=== PATIENT | female | born 1965 | race Caucasian/White ===

== ENCOUNTER 2020-05-10 15:13 | Emergency (ER) | payer OTHER, SELFPAY ==
--- NOTE | ~2020-05-10 | XR_ITS ---
XR ankle LT min 3V DATE: 05/10/2020 16:11 INDICATION: Fall. Dorsal foot pain, ankle pain TECHNIQUE: 4 views COMPARISON: None FINDINGS: There is an up to approximately 2 x 8 mm cortical avulsion fracture of the dorsal aspect of the anterior process of the talus with overlying soft tissue swelling. No other fracture or dislocation of the ankle or disruption of the ankle mortise is detected. There i s mild lateral ankle soft tissue swelling. IMPRESSION: Cortical avulsion fracture of the dorsal aspect of the anterior process of the talus Reviewed, dictated and finalized at [facility] [employer] IMPRESSION: Cortical avulsion fracture of the dorsal aspect of the anterior pro cess of the talus
[2020-05-10 15:25] VITALS: BP 141/91; PULSE 76; RESP 16; TEMP 36.4; O2SAT 100
[2020-05-10 15:36] VITALS: BP 141/91; PULSE 76; RESP 16; TEMP 36.4; O2SAT 99
--- NOTE | 2020-05-10 17:04 | ED.GENADULT ---
HPI - General Adult General Chief complaint: Extremity Injury, Lower Stated complaint: ankle injury Time Seen by Provider: 05/10/20 15:38 Source: patient Mode of arrival: ambulatory Limitations: no limitations History of Present Illness HPI narrative: Patient presents with chief complaint of pain to the lateral and dorsal aspect of her left ankle that she sustained after tripping while trying to help her father out of the wheelchair while at [employer] earlier today. Patient reports that she inverted her ankle and fell onto the ground. Patient denies pain to her arms or elbows, denies any pain to her head, loss of consciousness, headache, changes in vision or any other symptoms. Patient denies prior fracture to the ankle or foot. Patient states she will be returning to her home in [facility] in 2 days. Patient denies any daily medications, allergies or other chronic medical conditions. Related Data Allergies Allergy/AdvReac Type Severity Reaction Status Date / Time No Known Allergies Allergy Verified 05/10/20 17:13 Review of Systems Review of Systems: Narrative: CONSTITUTIONAL: Denies fever, chills, or sweats. EYES: Denies visual changes, redness, or discharge. ENT: Denies rhinorrhea, congestion, sore throat, or otalgia. CARDIOVASCULAR: Denies chest pain, palpitations, or edema. RESPIRATORY: Denies cough or dyspnea. GASTROINTESTINAL: Denies abdominal pain, nausea, vomiting, or diarrhea. GENITOURINARY: Denies dysuria or hematuria. SKIN: Denies rash or itching. MUSCULOSKELETAL: Left ankle pain and swelling denies back pain or myalgia. NEUROLOGIC: Denies headache, numbness, dizziness, or weakness. PSYCHIATRIC: Denies anxiety or depression. [facility] Social History Social History (Updated 05/10/20 @ 17:07 by Zuri Pavon PA-C) Smoking status: Never smoker Alcohol intake: current Substance use: never Exam Narrative: Exam Narrative: GENERAL: Well-appearing, well-nourished, and in no acute distress. HEAD: Normocephalic, atraumatic. EYES: PERRLA and EOMI. NECK: Supple. No adenopathy or masses. No loss of range of motion or tenderness or pain. CHEST: Clear to auscultation. No respiratory distress. No wheezes rales or rhonchi HEART: Regular rate and rhythm. No murmur heard. Normal peripheral pulses. EXTREMITIES: Edema over lateral malleolus that extends over the dorsal aspect of left ankle. There is no significant erythema or ecchymosis. Patient reports pain is greater when she dorsiflex. Plantar flexion intact. SKIN: Warm, dry, no rash. NEURO: No focal deficits. Alert and oriented x3. PSYCH: Normal mood and affect. Course Vital Signs Vital signs: Vital Signs Temperature 97.5 F L 05/10/20 15:25 Pulse Rate 76 05/10/20 15:25 Respiratory Rate 16 05/10/20 15:25 Blood Pressure 141/91 H 05/10/20 15:25 Pulse Oximetry 100 05/10/20 15:25 Temperature 97.5 F L 05/10/20 15:36 Pulse Rate 76 05/10/20 15:36 Respiratory Rate 16 05/10/20 15:36 Blood Pressure 141/91 H 05/10/20 15:36 Pulse Oximetry 99 05/10/20 15:36 Medical Decision Making MDM Narrative Medical decision making narrative: Discussed with the patient the avulsion fracture noted on x-ray. Due to the location of the injury I discussed with the patient the risk and benefits of immobilization. With her about to take a 2-day long flight to [facility] immobilization poses a greater risk of causing DVT. She agrees that it is very risky and agrees that the best plan of care at this time will be a postop shoe and crutches. I have instructed her to follow-up with her proposal specialist when she is back home and to call tomorrow to set up a follow-up appointment for when she is home. Patient verbalizes understanding and will plan me also discussed RICE instructions as well as emergent return options. Differential Diagnosis Differential Diagnosis: Fracture, sprain, strain Vital Signs Vital Signs: Vital Signs Temperature 97.5 F L 05/10/20 15:25 Pul
--- NOTE | 2020-05-10 17:21 | PC.NURSE ---
patient refused crutches
== END 2020-05-10 17:38 | disposition home or self-care (01) ==
PROVIDERS: Emergency Provider Emergency Medicine
DX: S92.155A Nondisplaced avulsion fracture (chip fracture) of left talus, initial encounter for closed fracture (principal); W01.0XXA Fall on same level from slipping, tripping and stumbling without subsequent striking against object, initial encounter
CPT/HCPCS: 73610; 99284